=== PATIENT | male | born 1940 | race Caucasian/White ===

== ENCOUNTER → 2018-01-21 | Outpatient (CLI) | payer MEDICARE, BC ==
--- NOTE | 2018-01-21 12:54 | XR ---
EXAMINATION TYPE: XR chest 2V DATE OF EXAM: 01/21/2018 COMPARISON: NONE TECHNIQUE: PA and lateral views submitted. HISTORY: Bladder CA FINDINGS: The lungs are clear and there is no pneumothorax, pleural effusion, or focal pneumonia. Hypertrophi c and degenerative changes spine no overt failure. Atherosclerotic change mild prominence of the asce nding aorta. IMPRESSION: 1. No acute process. 2. Mild prominence of the ascending aorta may represent mild aneurysmal dilation.
--- NOTE | 2018-01-21 18:15 | CT ---
EXAMINATION TYPE: CT urogram wo/w con DATE OF EXAM: 01/21/2018 COMPARISON: None HISTORY: Bladder cancer CT DLP: 246.5.5 mGycm, Automated Exposure Control for Dose Reduction was Utilized. CONTRAST: CT scan of the abdomen and pelvis is performed with oral and without and with IV Contrast, patient in jected with 100 mL of Isovue 300. Precontrast images were performed per CT urogram protocol. FINDINGS: LUNG BASES: Millimeter area of focal pleural thickening is seen along the right lower lobe posteriorl y on image 23. LIVER/GB: There are scattered fluid attenuated hepatic cysts. No enhancing suspicious hepatic lesion to suggest metastasis. No cholelithiasis. PANCREAS: No significant abnormality is seen. SPLEEN: No significant abnormality is seen. ADRENALS: No significant abnormality is seen. KIDNEYS: On the unenhanced images there is no evidence of nephrolithiasis within either kidney. The k idneys enhance symmetrically without hydronephrosis. Minimal nonspecific perinephric fat stranding is seen. No uroepithelial thickening is noted. No ureteral stricture is identified to suggest synchrono us carcinoma. The patient's known urinary bladder carcinoma is not well identified on CT although the re is wall thickening anteriorly. There is a too small to accurately characterize anterior right perfecto ically based renal lesion on image 45 measuring 4 mm that has the appearance of a cystic lesion as it is hypoattenuating on all sequences without apparent enhancement BOWEL: Colonic diverticulosis predominates within the sigmoid colon without pericolonic fat stranding . Terminal ileum and appendix are unremarkable. PROSTATE/SEMINAL VESICLES: Prostate gland is diffusely heterogenous containing central zone calcifica tions is enlarged measuring 5.2 cm in transverse dimension. LYMPH NODES: No greater than 1cm abdominal or pelvic lymph nodes are appreciated. Calcified lymph no de is seen in the mesorectal fascia. OSSEOUS STRUCTURES: No significant abnormality is seen. Mild multilevel degenerative changes of the spine are seen OTHER: Moderate atherosclerosis is seen of the abdominal aorta and its branches. Infrarenal ectasia i s seen with the aorta measuring up to 0.6 cm in transverse dimension without aneurysm. Very small fat filled umbilical hernia is noted. IMPRESSION: 1. The primary urinary bladder carcinoma is not well delineated however there appears to be focal wal l thickening along the anterior urinary bladder wall. No synchronous tumor is seen as there is no ang dence of uroepithelial thickening, ureteral filling defect, or suspicious renal lesion. Too small to accurately characterize but probable subcentimeter cortically based right renal cyst is noted. 2. Numerous hepatic cysts. No evidence of visceral or osseous metastasis. No suspicious osseous lesio ns.
== END ==
LOC: RADCTMAIN 11:11
PROVIDERS: ATTEND Urology
DX: C67.0 Malignant neoplasm of trigone of bladder (principal); Z01.818 Encounter for other preprocedural examination
CPT/HCPCS: 82565; 84520; 71046; 74178; 36415; 74400; Q9967

== ENCOUNTER → 2020-08-26 | Outpatient (CLI) | payer MEDICARE, BC ==
[2020-08-26 12:37] LABS: Appearance,Urine Clear (Clear); Bilirubin,Urine Negative (Negative); Blood,Urine Negative (Negative); Color,Urine Yellow; Glucose,Urine (UA) Negative (Negative); Ketones,Urine Negative (Negative); Leukocyte Esterase,Urine Negative (Negative); Nitrite,Urine Negative (Negative); Protein,Urine Negative (Negative); Specific Gravity,Urine 1.024 (1.001-1.035); Urobilinogen,Urine <2.0 mg/dL (<2.0)
[2020-08-26 12:53] LABS: Partial Thromboplastin Time 26.5 sec (22.0-30.0); Prothrombin Time 10.5 sec (9.0-12.0)
[2020-08-26 23:16] LABS: Basophils # (A) 0.04 X 10*3/uL (0.00-0.10); Basophils % (A) 0.7 %; Eosinophils # (A) 0.17 X 10*3/uL (0.04-0.35); Eosinophils % (A) 2.9 %; HCT 46.4 % (39.6-50.0); HGB 15.1 g/dL (13.0-17.0); Lymphocytes # (A) 2.05 X 10*3/uL (0.90-5.00); Lymphocytes % (A) 35.5 %; MCH 30.2 pg (27.0-32.0); MCHC 32.5 g/dL (32.0-37.0); MCV 92.8 fL (80.0-97.0); Mean Platelet Volume 12.2 fL (9.5-12.2); Monocytes # (A) 0.56 X 10*3/uL (0.20-1.00); Monocytes % (A) 9.7 %; Neutrophils # (A) 2.94 X 10*3/uL (1.80-7.70); Platelet Count 129 X 10*3/uL (140-440); WBC 5.77 X 10*3/uL (4.50-10.00)
[2020-08-27 01:28] LABS: African American GFR (CKD) 73.1 (60.0-200.0); Albumin 4.7 g/dL (3.80-4.90); Albumin/Globulin Ratio 1.88 (1.60-3.17); Anion Gap 8.7 mmol/L (4.00-12.00); BUN/Creat Ratio 20.91 Ratio (12.00-20.00); Calcium 9.4 mg/dL (8.7-10.3); Carbon Dioxide 24.3 mmol/L (21.6-31.8); Globulin 2.5 g/dL (1.6-3.3); Non-African American GFR(CKD) 63.1 (60.0-200.0); Potassium 4.7 mmol/L (3.5-5.5); Total Bilirubin 0.7 mg/dL (0.3-1.2); Total Protein 7.2 g/dL (6.2-8.2)
== END | disposition home or self-care (01) ==
LOC: LABWHC1 11:52
PROVIDERS: ATTEND Family Medicine
DX: Z01.810 Encounter for preprocedural cardiovascular examination (principal); Z79.01 Long term (current) use of anticoagulants
CPT/HCPCS: 36415; 80053; 81003; 85025; 85610; 85730

== ENCOUNTER → 2022-04-08 | Outpatient (CLI) | payer MEDICARE, BC ==
--- NOTE | 2022-04-08 14:07 | US ---
EXAMINATION TYPE: US carotid duplex BILAT DATE OF EXAM: 04/08/2022 COMPARISON: NONE CLINICAL HISTORY: R55 SYNCOPE,R09.89,R26.81,R41.3. altered mental status TECHNIQUE: Carotid duplex ultrasound examination. Indirect Doppler criteria was utilized. 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 IMPRESSION: Less than 50% stenosis of the bilateral carotid bifurcations. Criteria for Assigning % of Stenosis / Diameter reduction (Estimation based on the indirect measurements of the internal carotid artery velocities (ICA PSV). 1. Normal (no stenosis)=ICA PSV < 125 cm/s: ratio < 2.0: ICA EDV<40 cm/s. 2. Less than 50% stenosis=ICA PSV < 125 cm/s: ratio < 2.0: ICA EDV<40 cm/s. 3. 50 to 69% stenosis=ICA PSV of 125 to 230 cm/s: ration 2.0 ? 4.0: ICA EDV 40-100 cm/s. 4. Greater than 70% stenosis to near occlusion= ICA PSV > 230 cm/s: ratio > 4.0: ICA EDV > 100 cm/s. 5. Near occlusion= ICA PSV velocities may be low or undetectable: variable ratio and ICA EDV. 6. Total occlusion=unable to detect flow.
--- NOTE | 2022-04-08 15:44 | MR ---
EXAMINATION TYPE: MR brain wo con DATE OF EXAM: 04/08/2022 2:26 PM COMPARISON: None. CLINICAL INDICATION:Male, 81 years old with history of R55 R413 [id number]; PHH, TECHNIQUE: Multi planar, multi sequence imaging was performed through the brain. No gadolinium was gi rach. FINDINGS: The marcus-white junctions, ventricular system, and cisterns appear unremarkable. Patchy areas of high T2 signal intensity are seen within the periventricular and subcortical white matter. Midline struct ures show no abnormality. Diffusion-weighted imaging shows no evidence of restricted diffusion. The s usceptibility weighted images do not reveal any evidence for micro-hemorrhage. Cerebral volume loss w hich is likely age-related. The bone marrow signal is within normal limits. Mucous retention cyst measuring 1.3 cm within the rig ht maxillary sinus. The ocular lenses are surgically absent. Posterior right scalp 1 cm T1/T2 hypoint ense lesion favored to represent a benign process such as a pilomatricoma or sebaceous cyst. IMPRESSION: 1. No evidence of intracranial mass or acute/subacute infarct. 2. Nonspecific white matter changes, likely secondary to small vessel ischemic disease.
== END | disposition home or self-care (01) ==
LOC: RADUSWWP 12:50
PROVIDERS: ATTEND Psychiatry & Neurology Neurology
DX: I65.23 Occlusion and stenosis of bilateral carotid arteries (principal); R90.82 White matter disease, unspecified; R55 Syncope and collapse; R09.89 Other specified symptoms and signs involving the circulatory and respiratory systems; R26.81 Unsteadiness on feet; R41.3 Other amnesia
CPT/HCPCS: 70551; 93880

== ENCOUNTER → 2022-04-16 | Outpatient (CLI) | payer MEDICARE, BC ==
--- NOTE | 2022-04-17 00:35 | EEG ---
ELECTROENCEPHALOGRAM REPORT PREAMBLE: This is an 81-year-old male with recurrent syncopal episodes while driving. This study is performed to rule out any epileptiform activity. CURRENT MEDICATIONS: 1. Myrbetriq. 2. Zyrtec. 3. Clonidine. EEG FINDINGS: This is a 21-channel digital EEG recorded with video component, utilizing 10/20 international system with referential and bipolar montages. Background consists of well developed, well regulated moderate voltage activity in 9 to 10 hertz alpha. Background is posterior dominant and reactive to eye opening and closing. Photic driving response was seen with some flash frequencies. Drowsiness was seen with appearance of bilaterally symmetric theta frequency rhythm. Stage 2 sleep was attained with presence of sleep spindles. No focal or generalized epileptiform activity was seen. EKG channel showed no obvious arrhythmia. Hyperventilation was not performed. IMPRESSION: This is a normal EEG during wakefulness, drowsiness, and brief stage 2 sleep. No focal, lateralized, or epileptiform activity was seen. MMODL / IJN: [id number] /
== END ==
LOC: NEUROMAIN 05:53
PROVIDERS: ATTEND Psychiatry & Neurology Neurology
DX: R55 Syncope and collapse (principal)
CPT/HCPCS: 95816

== ENCOUNTER → 2022-06-17 | Outpatient (CLI) | payer MEDICARE, BC ==
--- NOTE | 2022-06-17 15:28 | P.SLEEP ---
History of Present Illness DATE: 06/17/2022 CONSULTATION/NEW PATIENT EVALUATION HISTORY OF PRESENT ILLNESS/SLEEP-WAKE EVALUATION: 81-year-old gentleman had been evaluated in the sleep center for significant excessive daytime sleepiness and possible obstructive sleep apnea hypopnea syndrome. Patient has history of obstructive sleep apnea diagnosed 20 years ago in another institution. He was treated with CPAP and then in 2013 started to use oral appliances and stop CPAP. Recently patient developed significant sleepiness including sleepiness while driving SLEEP SCHEDULE: Usually sleep schedule 10:30 PM to 6-7 AM. FALLING ASLEEP: No problems with falling asleep, no TV in bedroom. DURING SLEEP: Patient usually sleeps on the side position. He is using oral appliances every night. According to his patient has episodes of stop breathing during the sleep while using oral appliances. Patient wakes up from sleep 2 times to urinate. No history of hypnogogical hallucinations, sleep paralysis, or cataplexy. DURING THE DAY/WAKE STATE: Patient may fill sleepiness during the day. [place] sleepiness scale is 11, which indicates sleepiness. Patient takes 1 nap at lunchtime. PAST MEDICAL HISTORY: Hypertension, bladder CA, back problems. PAST SURGICAL HISTORY: Recent L2 L4 decompression surgery, bladder cancer removed in 2017, right hip surgery 2020. MEDICATIONS: Clonidine patch 0.2 mg once a day, Myrbetric 50 mg once a day. SOCIAL HISTORY: Negative for smoking, alcohol consumption occasional. REVIEW OF SYSTEMS: Sleepiness during the day. No fevers. No double vision. No recent chest pain. No shortness of breath. No abdominal pain. No bleeding episodes. No blood in urine. No seizure episodes. PHYSICAL EXAMINATION: GENERAL: A pleasant patient without any distress. VITAL SIGNS: BP 154/87, HR 77, RR 16, weight 201.6 pounds, height 5 foot 10 inches, body mass index 28.8. HEENT: PERRLA, EOMI. Evaluation of oropharynx showed tongue protrudes midline, low position of soft palate Mallampati 4. NECK: Supple. No JVD. Thyroid is not palpable. 16-1/4 inches in circumference. LUNGS: Clear to percussion and to auscultation. Good air exchange. No wheezing or rhonchi. HEART: S1, S2 regular. No murmurs, gallops or rubs. ABDOMEN: Soft and nontender. Bowel sounds are present. No organomegaly appreciated. EXTREMITIES: No clubbing or cyanosis. WIRER MAINTENANCE: Awake, alert, and oriented x3. Cranial nerves 2 to 7 intact. There is no fasciculation or atrophy noted. No focal deficits observed. ASSESSMENT: 1. History of obstructive sleep apnea diagnosed in another institution 20 years ago. Presently patient is on oral appliances every night. Witnessed episodes of sleep apneas by his on oral appliances. Extremely low position of soft palate Mallampati 4. Sleepiness during the day, [place] sleepiness scale increased to 11. Obstructive sleep apnea-hypopnea syndrome. 2. Hypertension. 3. History of bladder CA status post surgical treatment. 4. Status post recent L2 L4 decompression surgery. 5 status post right hip surgery. PLAN: 1. Polysomnography with oral appliances for evaluation of patient's breathing during sleep. 2. CPAP/BiPAP titration if sleep study confirms obstructive sleep apnea- hypopnea syndrome. 3. Preferable position during sleep on the side. 4. No driving if patient feels any sleepiness. Patient is aware of civil and criminal liability for unsafe driving. 5. Sleep hygiene with regular sleep time for at least 7.5-8 hours. 6. Watching weight. Thank you very much for referring this patient for consultation. Sincerely, Jevon Cordoba MD, PhD, FAASM. Diplomat of [place] [employer], Sleep Medicine Board by [place] [employer] [employer] Tobacco Sieve Operator of [facility] Sleep Note - Sleep Note Sleep Note: Temperature: Pulse Rate: Respiratory Rate: Blood Pressure: SpO2: Height: Weight: BMI: Neck Circumference:
== END ==
LOC: SLEEP 14:29
PROVIDERS: ATTEND Internal Medicine
DX: G47.33 Obstructive sleep apnea (adult) (pediatric) (principal); I10 Essential (primary) hypertension; Z99.89 Dependence on other enabling machines and devices; Z96.641 Presence of right artificial hip joint; Z85.51 Personal history of malignant neoplasm of bladder; Z98.890 Other specified postprocedural states
CPT/HCPCS: 99211

== ENCOUNTER → 2022-07-22 | Outpatient (CLI) | payer MEDICARE, BC ==
--- NOTE | 2022-07-22 13:41 | P.PN ---
Subjective DATE: 07/22/2022 FOLLOW UP VISIT. Patient returned to sleep center for follow-up visit to discuss results of sleep study and following plan. Polysomnogram have been done while patient used his oral appliances for treatment of obstructive sleep apnea. I discuss results of sleep studies in details with patient and to family. During sleep test while patient used oral appliances apnea-hypopnea index was 9.6 with lowest oxygen level 82.8%. Oxygen level was below normal for 4 minutes. Severe periodic limb movement 71.3 times per hour. Been documented with 4.4 micro-arousals per hour. [place] sleepiness scale is 3 today which is normal.. MEDICATIONS:1. Clonidine patch 2. Myrbetric 50 mg once a day During physical exam: GENERAL: A pleasant patient without any distress. VITAL SIGNS: BP 155/81, HR 59, RR 18, weight 200.8, temperature 96.9, oxygen saturation at room air 96. HEENT: PERRLA, EOMI. NECK: Supple. No JVD. LUNGS: Clear to percussion and to auscultation. Good air exchange. No wheezing or rhonchi. HEART: S1, S2 regular. ABDOMEN: Soft and nontender. EXTREMITIES: No clubbing or cyanosis. MANAGER NEW PRODUCT: Awake, alert, and oriented x3. No focal deficit. Impressions: 1. Obstructive sleep apnea-hypopnea syndrome in mild range while patient is on oral appliances. 2. Severe periodic limb movements have been documented during polysomnogram.. 3. Hypertension. 4. History of bladder cancer, status post surgical treatment. 5. Status post recent L2 L4 decompression surgery. 6. Status post right hip surgery. Plan: 1. Consider CPAP treatment for full correction of respiratory abnormalities. 2. Other option may include continue treatment with oral appliances, with possibly adjustments or new type of oral appliances. 3. Sleep hygiene with regular time in bed for at least 8 hours. 4. Precautions related to driving. No driving if feel any sleepiness. Patient is aware about civil and criminal liability for unsafe driving, promised to follow recommendations. Thank you very much for allowing me to participate in the management of your patient. Jevon Cordoba MD, PhD, FAASM. Diplomat of [place] [employer], Sleep Medicine Board by [place] [employer] Sales Engagement Executive of [facility] [place]
== END ==
LOC: SLEEP 13:01
PROVIDERS: ATTEND Internal Medicine
DX: G47.33 Obstructive sleep apnea (adult) (pediatric) (principal); G47.61 Periodic limb movement disorder; I10 Essential (primary) hypertension; Z85.51 Personal history of malignant neoplasm of bladder; Z99.89 Dependence on other enabling machines and devices; Z98.890 Other specified postprocedural states
CPT/HCPCS: 99212

== ENCOUNTER 2022-09-03 18:53 | Outpatient (CLI) | payer MEDICARE, BC | END 2022-09-04 23:59 | LOC: 3 N SLEEP 18:53 → EDSTATUS 19:30 → 3 N SLEEP 09-04 06:00 | PROVIDERS: ATTEND Internal Medicine | DX: G47.33 Obstructive sleep apnea (adult) (pediatric) (principal); I10 Essential (primary) hypertension; Z98.890 Other specified postprocedural states; Z96.641 Presence of right artificial hip joint; Z99.89 Dependence on other enabling machines and devices | CPT/HCPCS: 95811 ==

== ENCOUNTER 2023-04-14 12:50 | Day surgery (SDC) | payer MEDICARE, BC ==
[2023-04-08 12:14] VITALS: BMI 27.6
[~2023-04-14 12:50] MED LIST: DEXAMETHASONE SOD PHOSPHATE 4 MG/ML 1 ML VIAL IV ONE; FAMOTIDINE 20 MG/2 ML VIAL IV PRN; HYDROmorphone 0.5 MG/0.5 ML SYRINGE IVP PRN; LACTATED RINGERS 1,000 ML IV SCH; ONDANSETRON 4 MG/2 ML VIAL IVP ONE
[2023-04-14] MEDS: OXYMETAZOLINE 0.05% NASL SPRAY 1 SPRAY BOTTLE EA NOSTRIL PRN ×5 (13:15→13:35)
[2023-04-14 13:17] VITALS: TEMP 97.2
[2023-04-14] MEDS ORDERED: SUCCINYLCHOLINE CHLORIDE 200 MG/10 ML VIAL IV ONE (14:03)
[2023-04-14] MEDS ORDERED: MIDAZOLAM 2 MG/2 ML VIAL ONE (14:03)
[2023-04-14] MEDS ORDERED: fentaNYL (PF) 50 MCG/ML 2 ML AMP ONE (14:03)
[2023-04-14] MEDS ORDERED: PROPOFOL 10 MG/ML 20 ML VIAL IV ONE (14:03)
[2023-04-14] MEDS ORDERED: LIDOCAINE 1%-EPI 1:100,000 50 ML VIAL SUBMUCOSAL ONE ×2 (14:13→14:15)
--- NOTE | 2023-04-14 14:40 | P.OP ---
Date of Procedure: 04/14/23 Preoperative Diagnosis: Left posterior epistaxis Postoperative Diagnosis: Same Procedure(s) Performed: Bilateral nasal endoscopy with selective cauterization of the posterior tip of the left inferior turbinate Anesthesia: RICHARD Surgeon: Chris Jacobson Estimated Blood Loss (ml): 1 Pathology: none sent Condition: stable Disposition: PACU Indications for Procedure: This is 82-year-old white male whose had difficulties with recurrent epistaxis on the left side over the last several weeks including requiring packing in the ER twice. Operative Findings: Well-healed mid nasal septal perforation. There was a small eschar with superficial vessel left inferior turbinate posteriorly which did bleed with light touch Description of Procedure: The patient was brought in the operative suite and placed in a supine position. Patient underwent induction of general anesthesia with oral endotracheal intubation without difficulty. Patient prepped and draped in usual aseptic fashion. Full 0 endoscopic examination is performed bilaterally. No abnormalities were noted on the right. Proceeding on the left the suspicious area for posterior epistaxis on the left was the posterior tip of the left inferior turbinate. This was cauterized with suction cautery at a setting of 15 and excellent hemostasis was noted. No further bleeding points were noted. Excellent in the stasis remained. The endoscope was withdrawn. The patient was then allowed to emerge from general anesthesia having tolerated well was extubated in the operating suite and transferred to postop recovery area in satisfactory condition
[2023-04-14 15:22] VITALS: RESP 16
[2023-04-14 16:11] VITALS: BP 167/88; PULSE 63
== END 2023-04-14 16:04 | disposition home or self-care (01) ==
LOC: OR 12:50
PROVIDERS: ATTEND Otolaryngology
DX: R04.0 Epistaxis (principal); I10 Essential (primary) hypertension; Z85.51 Personal history of malignant neoplasm of bladder; Z79.899 Other long term (current) drug therapy
CPT/HCPCS: 31238; J2250; J0330; J1100; J0690; J2405; J3010; J3490; J2704

== ENCOUNTER → 2023-10-07 | Outpatient (CLI) | payer MEDICARE, BC ==
[2023-10-07 09:04] VITALS: BP 146/70; PULSE 60; RESP 16
--- NOTE | 2023-10-07 14:12 | P.PAINPG ---
PQRS Measure Charge Sheet Comment: HISTORY OF PRESENT ILLNESS: A 82 yr old female as a referral from Dr Santos presents today w severe & chronic L hip pain and LBP > 1 yr secondary to L2-L4 Decompression, L Hip DJD for evaluation. Pt states pain level is provoked at 1 /10 in intensity, intermittent, localized in the lumbar spine, predominantly axial, achy in character w occasional shooting pain towards the BL feet. Pain is provoked by weight bearing activity. Pain is alleviated by PT x 2 wks which he is currently in, massage therapy semi monthly since Mar 2023 which he is currently in, chiropractic treatments monthly since 2022 as needed, physician guided home stretches daily since Mar 2023, medications (Tyl, ASA), repositioning and rest . Oswestry axial pain score at 12. PMH: OA, ANGY, HTN, OAB PSH: Hx of Bladder CA, L2-L4 Fusion/ Decompression w L3-L4 Pedicle Screws, R Hip Surgery, Sinus Laceration w Cauterization (2006), Sinus Surgery (2023) SH: Negative x3 FH: Non contributory All: See list Meds: See list REVIEW OF ORGAN SYSTEMS: CONSTITUTIONAL: No fevers or chills. No recent weight loss. NEUROLOGICAL: + numbness and tingling along the distal extremities. No seizure disorders or headaches. MUSCULOSKELETAL: + pain PSYCHIATRIC: Denies current depression or suicidal thoughts. Physical Examinations : Constitutional : Cooperative , not in acute distress . Neurologic : Cranial nerve II to XII intact. No focal neurological deficits. Psychiatric : alert & oriented x 3. Matching mood & appropriate affect. Judgment & insight intact. Musculoskeletal : Cervical Spine Motor strength in the deltoid and biceps: Normal right side. Normal Left side Motor strength biceps and the wrist extensors: Normal right side . Normal left side Motor strength in the triceps muscle: Normal right side. Normal left side Deep tendon reflexes: Normal at the biceps. Normal at Brachioradialis. Normal at triceps Vertebral body tenderness to deep palpation over Cervical facet loading test: positive bilaterally Spurling test: positive bilaterally Neck distraction test: positive bilaterally Kulwant sign: positive bilaterally Lumbar spine Motor strength lower extremities ,thigh and legs 5/5 Right side , 5/5 Left side Deep tendon reflexes : Normal Knee Jerk. Normal Ankle Jerk Vertebral body tenderness over Reeder Test positive Lumbar facet Loading Test: positive Right / positive Left Range of motion of the lumbar spine Flexion 30 degrees, extension 10 degrees Straight Leg Raise test: Left/ Right positive at degrees Odilon test: positive right / positive left. Severe tenderness over the Sacroiliac joint on the Right / Left sides Gaenslen test: positive bilaterally Seated flexion test: positive bilaterally. Sacral spine : Severe tenderness over the Sacroiliac joint: right side / left side Range of motion: Flexion of the lumbar spine <60 degrees Range of motion: Extension of the lumbar spine <20 degrees Gaenslen's Test positive Odilon test: positive right side / left side Thigh Thrust Test Sacral Thrust Test Imaging: CT non contrast lumbar spine from 09/04/23 reviewed MRI non contrast L hip from 09/04/23 reviewed Assessment/ Plan : L Hip DJD, Lumbar radiculopathy Recommendation of medication management. Diclofenac gel 3% apply to AA BID for pain Disp 1 tube w 2 RF. Use, side effects, adverse reactions, safe storage discussed. All questions answered. I have spent greater than 30 minutes on patient care today. Dr Sauceda was available by phone for the evaluation of this patient. The time was used to review the medical records including relevant urine studies and Prescription history (MAPs), review of the available imaging, evaluation and examination of the patient, coordination of care with the medical staff and if applicable referring physicians, as well as creation of the medical record Home Medications: Ambulatory Orders Bio True Eye Drops 1 drop BOTH EYES DAILY PRN 04/08/23 Cetirizine HCl [Zyrtec] 10 mg PO DAILY PRN 04/08/23 Mirabegron [Myrbetriq] 50 mg PO HS 04/08/23 cloNIDine HCL [Catapres] 0.1 mg PO BID 04/14/23 Diclofenac Sodium Gel [Voltaren 1% Gel] 100 gm TOPICAL DAILY 30 Days #1 each 10/07/23 Controlled Substance Measures - Controlled Substance Measures Is patient prescribed a controlled substance at discharge?: No
== END ==
LOC: PNWHC3 08:34
PROVIDERS: ATTEND Specialist
DX: M51.16 Intervertebral disc disorders with radiculopathy, lumbar region (principal); M47.26 Other spondylosis with radiculopathy, lumbar region; M16.12 Unilateral primary osteoarthritis, left hip
CPT/HCPCS: 99211